=== PATIENT | female | born 1945 | race Caucasian/White ===

== ENCOUNTER 2017-08-01 07:30 | Inpatient (IN) | payer MEDICARE ==
[~2017-08-01] VITALS: Ht 160 cm; Wt 71.3 kg
[2017-08-07 17:46] VITALS: BP 92/50
[2017-08-07] MEDS ORDERED: DOCUSATE 100 MG CAPSULE PO PRN (19:00)
[2017-08-07] MEDS ORDERED: ONDANSETRON 2MG/ML, 2ML IVPush PRN (19:00)
[2017-08-07] MEDS ORDERED: HYDROcodone/APAP 5/325 TABLET PO PRN (19:00)
[2017-08-07] MEDS ORDERED: ACETAMINOPHEN 325 MG TABLET PO PRN ×2 (19:00→20:00)
[2017-08-07] MEDS ORDERED: HEPARIN 5,000 UNITS/ML, 1ML SQ SCH (19:00)
[2017-08-07] MEDS ORDERED: LABETALOL 5MG/ML, 20ML IVPush PRN (19:00)
[2017-08-07 19:20] LABS: HEMATOCRIT 38.2 % (34.6-47.8); HEMOGLOBIN 12.5 g/dL (11.7-16.4)
[2017-08-07 19:24] LABS: BLOOD UREA NITROGEN 30 mg/dL (7-18)
[2017-08-07 19:29] LABS: ASPARTATE AMINO TRANSFERASE 33 U/L (15-37)
[2017-08-07] MEDS ORDERED: PLEASE ENTER ALLERGIES MC SCH ×4 (19:30→20:00)
[2017-08-07] MEDS ORDERED: CHLORHEXIDINE MOUTHWASH 15 ML UDC MM PRN (20:00)
[2017-08-07] MEDS ORDERED: INSULIN ASPART 100 UNITS/ML, PEN SQ-INSULIN SCH (20:00)
[2017-08-07] MEDS ORDERED: ZOLPIDEM 5MG TABLET PO PRN (20:00)
[2017-08-07] MEDS ORDERED: AMIO200T42 PO (20:06)
[2017-08-07] MEDS ORDERED: LEVO50TA5 PO (20:06)
[2017-08-07] MEDS ORDERED: FURO40TA6 PO (20:06)
[2017-08-07] MEDS ORDERED: SPIR50TA2 PO (20:06)
[2017-08-07] MEDS ORDERED: POTA10TA11 PO (20:06)
[2017-08-07] MEDS ORDERED: TRAZ50TA18 PO (20:06)
[2017-08-07 20:15] VITALS: BP 93/53
[2017-08-07] MEDS: SODIUM CHLORIDE FLUSH 10ML SYR IVF SCH (21:00)
[2017-08-07] MEDS ORDERED: OMNIPAQUE 350 MG/ML, 75ML BOTTLE ONE (21:14)
[2017-08-08 03:55] VITALS: BP 98/53
[2017-08-08 04:27] VITALS: BP_SYST 84; BP_SYST 92; BP_DIAS 44; BP_DIAS 52
[2017-08-08] MEDS ORDERED: ALBUMIN HUMAN 5% 500 ML IV PRN (04:30)
[2017-08-08] MEDS: MUPIROCIN OINT 2%, 22GM TP SCH ×2 (05:03→18:20)
[2017-08-08] MEDS ORDERED: MIDAZOLAM 10MG/2 ML ONE (06:48)
[2017-08-08] MEDS ORDERED: FENTANYL PF 1000 MCG/20ML ONE (06:48)
[2017-08-08] MEDS ORDERED: TALC 30 GM AERO.PWD INTRAPL ONE (07:00)
[2017-08-08] MEDS ORDERED: MIDAZOLAM 1 MG/ML, 2ML ONE (07:22)
[2017-08-08] MEDS ORDERED: ROCURONIUM 10 MG/ML,10ML ONE ×2 (07:22→08:18)
[2017-08-08] MEDS ORDERED: FENTANYL PF 250 MCG/5ML ONE (07:22)
[2017-08-08] MEDS ORDERED: AMINOCAPROIC ACID 250 MG/ML, 20ML ONE (07:22)
[2017-08-08] MEDS ORDERED: PROPOFOL 10 MG/ML, 20ML ONE ×2 (07:22→08:19)
[2017-08-08] MEDS ORDERED: PHENYLEPHRINE 10 MG in SODIUM CHLORIDE 0.9% 249 ML IV PRN ×2 (07:30→12:59)
[2017-08-08] MEDS ORDERED: VANCOMYCIN 1,600 MG in SODIUM CHLORIDE 0.9% 250 ML IVPB PRN (07:30)
[2017-08-08] MEDS ORDERED: DEXMEDETOMIDINE 200 MCG in SODIUM CHLORIDE 0.9% 48 ML IV SCH (07:30)
[2017-08-08] MEDS ORDERED: REGULAR INSULIN 62.5 UNITS in SODIUM CHLORIDE 0.9% 249.375 ML IV PRN ×2 (07:30→12:59)
[2017-08-08] MEDS ORDERED: EPINEPHRINE 2 MG in SODIUM CHLORIDE 0.9% 248 ML IV SCH (07:30)
[2017-08-08] MEDS ORDERED: CEFUROXIME 1.5 GM in SODIUM CHLORIDE 0.9% 50 ML IVPB PRN (07:30)
[2017-08-08] MEDS ORDERED: MANNITOL PMX 20% 500 ML IVPB PRN (07:30)
[2017-08-08] MEDS ORDERED: POTASSIUM CHLORIDE 80 MEQ, SODIUM BICARBONATE 8.4% 10 MEQ, MAGNESIUM SULFATE 0.5 GM, LI... IV PRN (07:30)
[2017-08-08] MEDS: DOCUSATE 100 MG CAPSULE PO SCH ×2 (09:00→21:52)
[2017-08-08] MEDS: SODIUM CHLORIDE FLUSH 10ML SYR IVF SCH ×3 (09:00→21:50)
[2017-08-08] MEDS ORDERED: PROTAMINE SULFATE 10 MG/ML, 25ML ONE (11:08)
[2017-08-08] MEDS ORDERED: CALCIUM CHLORIDE 10%, 10ML SYR ONE (11:39)
[2017-08-08] MEDS ORDERED: VASOPRESSIN 20 UNIT/ML, 1ML ONE (12:39)
[2017-08-08] MEDS ORDERED: VASOPRESSIN 50 UNIT in SODIUM CHLORIDE 0.9% 250 ML IV PRN (12:59)
[2017-08-08] MEDS ORDERED: DOBUTAMINE 250 MG in SODIUM CHLORIDE 0.9% 230 ML IV PRN (12:59)
[2017-08-08] MEDS ORDERED: NITROGLYCERIN/D5W PMX 240 ML IV PRN (12:59)
[2017-08-08] MEDS ORDERED: OXYcodone IR 5MG TABLET PO PRN (13:00)
[2017-08-08] MEDS ORDERED: DEXTROSE 4 GM TAB.CHEW PO PRN (13:00)
[2017-08-08] MEDS ORDERED: BISACODYL 5 MG EC TABLET PO PRN (13:00)
[2017-08-08] MEDS ORDERED: DEXTROSE 50%, 50ML SYRINGE IVPush PRN (13:00)
[2017-08-08] MEDS ORDERED: ACETAMINOPHEN 650 MG SUPP PR PRN (13:00)
[2017-08-08] MEDS ORDERED: INSULIN REGULAR 100 UNITS/ML, 3ML VIAL IVPush PRN (13:00)
[2017-08-08] MEDS ORDERED: SODIUM BICARB 8.4%, 50ML SYRINGE IV PRN (13:00)
[2017-08-08] MEDS ORDERED: ONDANSETRON 2MG/ML, 2ML IVPush PRN (13:00)
[2017-08-08] MEDS ORDERED: GLUCAGON 1 MG IM PRN (13:00)
[2017-08-08] MEDS: KSCALE TO 4.5 IV SCH ×2 (13:00→19:00)
[2017-08-08] MEDS ORDERED: ACETAMINOPHEN 325 MG TABLET PO PRN (13:00)
[2017-08-08] MEDS ORDERED: PROCHLORPERAZINE 5 MG/ML, 2ML IVPush PRN (13:00)
[2017-08-08] MEDS ORDERED: BISACODYL 10 MG SUPP PR PRN (13:00)
[2017-08-08] MEDS ORDERED: LACTATED RINGERS 1,000 ML IV PRN (13:00)
[2017-08-08 13:40] LABS: ABG COLLECTION SITE ARTERIAL LINE
[2017-08-08] MEDS: CHLORHEXIDINE MOUTHWASH 15 ML UDC MM SCH (14:28)
[2017-08-08] MEDS ORDERED: POTASSIUM CHLORIDE PMX 100 ML IV ONE (14:30)
[2017-08-08] MEDS: INSULIN ASPART 100 UNITS/ML, PEN SQ-INSULIN SCH ×2 (16:00→21:00)
[2017-08-08] MEDS: MAGNESIUM SULFATE 1 GM in SODIUM CHLORIDE 0.9% 50 ML IVPB SCH (17:18)
[2017-08-08] MEDS: DEXMEDETOMIDINE 200 MCG in SODIUM CHLORIDE 0.9% 48 ML IV PRN ×2 (17:18→22:14)
[2017-08-08] MEDS: EPINEPHRINE 2 MG in SODIUM CHLORIDE 0.9% 248 ML IV PRN ×2 (17:21→23:48)
[2017-08-08] MEDS ORDERED: ALBUMIN HUMAN 5% 500 ML IV ONE (18:00)
[2017-08-08 18:11] VITALS: BP 87/58
[2017-08-08 18:30] VITALS: BP 90/58
[2017-08-08 18:50] LABS: HEMATOCRIT 37.1 % (34.6-47.8); HEMOGLOBIN 12.4 g/dL (11.7-16.4)
[2017-08-08 19:17] VITALS: BP 119/69
[2017-08-08 19:27] LABS: BLOOD UREA NITROGEN 24 mg/dL (7-18)
[2017-08-08] MEDS: MUPIROCIN OINT 2%, 22GM NAS SCH (21:36)
[2017-08-08] MEDS: VANCOMYCIN PMX 1GM/200ML 200 ML IVPB SCH (21:37)
[2017-08-08] MEDS: MIDAZOLAM 1 MG/ML, 5ML IVPush PRN (21:52)
[2017-08-08] MEDS: CEFUROXIME 1.5 GM in SODIUM CHLORIDE 0.9% 50 ML IVPB SCH (21:52)
[2017-08-09] MEDS: KSCALE TO 4.5 IV SCH ×2 (01:00→07:00)
[2017-08-09 01:43] LABS: HEMOGLOBIN 10.4 g/dL (11.7-16.4)
[2017-08-09] MEDS: DEXMEDETOMIDINE 200 MCG in SODIUM CHLORIDE 0.9% 48 ML IV PRN ×3 (02:32→22:43)
[2017-08-09] MEDS: CHLORHEXIDINE MOUTHWASH 15 ML UDC MM SCH ×2 (02:33→13:00)
[2017-08-09] MEDS ORDERED: FUROSEMIDE 20 MG/2 ML ONE (04:09)
[2017-08-09 04:28] LABS: ABG COLLECTION SITE ARTERIAL LINE
[2017-08-09 04:29] LABS: HEMATOCRIT 30.2 % (34.6-47.8); HEMOGLOBIN 9.9 g/dL (11.7-16.4); WHITE BLOOD COUNT 19.6 x10^3/uL (3.4-10)
[2017-08-09 04:41] LABS: BLOOD UREA NITROGEN 25 mg/dL (7-18)
[2017-08-09] MEDS: MIDAZOLAM 1 MG/ML, 5ML IVPush PRN (05:24)
[2017-08-09] MEDS ORDERED: FUROSEMIDE 20 MG/2 ML IV ONE (05:30)
[2017-08-09] MEDS ORDERED: PHENYLEPHRINE 20 MG in SODIUM CHLORIDE 0.9% 248 ML IV PRN (05:57)
[2017-08-09] MEDS: MUPIROCIN OINT 2%, 22GM TP SCH (06:00)
[2017-08-09] MEDS: INSULIN ASPART 100 UNITS/ML, PEN SQ-INSULIN SCH ×4 (07:00→21:00)
[2017-08-09] MEDS ORDERED: ALBUMIN HUMAN 5% 500 ML IV ONE (07:00)
[2017-08-09] MEDS: CEFUROXIME 1.5 GM in SODIUM CHLORIDE 0.9% 50 ML IVPB SCH (08:54)
[2017-08-09] MEDS: VANCOMYCIN PMX 1GM/200ML 200 ML IVPB SCH (08:54)
[2017-08-09] MEDS ORDERED: ASPIRIN 81 MG TABLET EC PO SCH (09:00)
[2017-08-09] MEDS: DOCUSATE 100 MG CAPSULE PO SCH ×2 (09:00→21:00)
[2017-08-09] MEDS ORDERED: ASPIRIN 81 MG TABLET CHEW ONE (10:19)
[2017-08-09] MEDS: EPINEPHRINE 2 MG in SODIUM CHLORIDE 0.9% 248 ML IV PRN (10:36)
[2017-08-09] MEDS: MAGNESIUM SULFATE 1 GM in SODIUM CHLORIDE 0.9% 50 ML IVPB SCH (12:37)
[2017-08-09] MEDS: ASPIRIN 81 MG TABLET CHEW PO SCH (12:37)
[2017-08-09] MEDS: SODIUM CHLORIDE FLUSH 10ML SYR IVF SCH ×2 (12:37→21:30)
[2017-08-09] MEDS: MUPIROCIN OINT 2%, 22GM NAS SCH ×2 (12:39→21:31)
[2017-08-09] MEDS: morphine SULFATE 10 MG/ML, 1ML IVPush PRN (14:24)
[2017-08-09] MEDS: EPINEPHRINE 4 MG in SODIUM CHLORIDE 0.9% 246 ML IV PRN (16:58)
[2017-08-09 19:11] LABS: HEMATOCRIT 25.9 % (34.6-47.8); HEMOGLOBIN 8.7 g/dL (11.7-16.4)
[2017-08-09] MEDS: DOCUSATE 50 MG/5 ML, 10ML UDC PO SCH (21:00)
[2017-08-10] MEDS: CHLORHEXIDINE MOUTHWASH 15 ML UDC MM SCH (01:04)
[2017-08-10] MEDS: EPINEPHRINE 4 MG in SODIUM CHLORIDE 0.9% 246 ML IV PRN ×2 (02:18→12:43)
[2017-08-10 04:00] VITALS: BP 114/61
[2017-08-10] MEDS: morphine SULFATE 10 MG/ML, 1ML IVPush PRN ×2 (04:46→10:03)
[2017-08-10] MEDS ORDERED: FILTER 0.22 MICRON IV PRN (06:00)
[2017-08-10] MEDS ORDERED: AMIODARONE 150 MG in DEXTROSE 5% 100 ML IV ONE (06:00)
[2017-08-10 06:03] LABS: ABG COLLECTION SITE NOT DOCUMENTED
[2017-08-10] MEDS: AMIODARONE 900 MG in DEXTROSE 5% 482 ML IV PRN (06:07)
[2017-08-10 06:12] LABS: BLOOD UREA NITROGEN 28 mg/dL (7-18)
[2017-08-10] MEDS: DEXMEDETOMIDINE 200 MCG in SODIUM CHLORIDE 0.9% 48 ML IV PRN ×3 (06:17→22:50)
[2017-08-10 06:28] LABS: HEMATOCRIT 25.7 % (34.6-47.8); HEMOGLOBIN 8.6 g/dL (11.7-16.4); WHITE BLOOD COUNT 13.8 x10^3/uL (3.4-10)
[2017-08-10] MEDS: INSULIN ASPART 100 UNITS/ML, PEN SQ-INSULIN SCH ×4 (07:00→22:49)
[2017-08-10] MEDS: DOCUSATE 50 MG/5 ML, 10ML UDC PO SCH ×2 (09:00→21:00)
[2017-08-10] MEDS: ENOXAPARIN 40 MG/0.4 ML SQ SCH (09:00)
[2017-08-10] MEDS: KSCALE TO 4.5 IV SCH ×3 (09:00→22:30)
[2017-08-10] MEDS ORDERED: POTASSIUM CHLORIDE PMX 100 ML IV ONE ×2 (09:30→19:00)
[2017-08-10] MEDS: ASPIRIN 81 MG TABLET CHEW PO SCH (13:17)
[2017-08-10] MEDS: MUPIROCIN OINT 2%, 22GM NAS SCH ×2 (13:17→20:26)
[2017-08-10] MEDS: HYDROcodone/APAP 10/325 MG TABLET PO PRN ×3 (13:17→23:58)
[2017-08-10] MEDS: SODIUM CHLORIDE FLUSH 10ML SYR IVF SCH ×2 (13:17→20:25)
[2017-08-10] MEDS ORDERED: FUROSEMIDE 20 MG/2 ML IV ONE ×2 (14:00)
[2017-08-10] MEDS: MAGNESIUM SULFATE 1 GM in SODIUM CHLORIDE 0.9% 50 ML IVPB SCH (14:06)
[2017-08-10] MEDS: PIPERACILLIN/TAZO/PMX 3.375GM 50 ML IV SCH ×2 (17:04→22:50)
[2017-08-11] MEDS: EPINEPHRINE 4 MG in SODIUM CHLORIDE 0.9% 246 ML IV PRN (03:34)
[2017-08-11 03:59] VITALS: BP 116/51
[2017-08-11] MEDS: PIPERACILLIN/TAZO/PMX 3.375GM 50 ML IV SCH ×4 (04:15→22:26)
[2017-08-11] MEDS: INSULIN ASPART 100 UNITS/ML, PEN SQ-INSULIN SCH ×3 (04:21→18:31)
[2017-08-11] MEDS: KSCALE TO 4.5 IV SCH ×3 (04:30→16:25)
[2017-08-11 04:31] LABS: ABG COLLECTION SITE ARTERIAL LINE
[2017-08-11 04:42] LABS: HEMATOCRIT 25.1 % (34.6-47.8); HEMOGLOBIN 8.4 g/dL (11.7-16.4); WHITE BLOOD COUNT 12.6 x10^3/uL (3.4-10)
[2017-08-11 04:43] LABS: BLOOD UREA NITROGEN 31 mg/dL (7-18)
[2017-08-11] MEDS ORDERED: POTASSIUM CHLORIDE PMX 100 ML IV ONE (05:30)
[2017-08-11] MEDS: AMIODARONE 900 MG in DEXTROSE 5% 482 ML IV PRN (05:40)
[2017-08-11] MEDS: DEXMEDETOMIDINE 200 MCG in SODIUM CHLORIDE 0.9% 48 ML IV PRN ×4 (06:19→22:25)
[2017-08-11] MEDS: SODIUM CHLORIDE FLUSH 10ML SYR IVF SCH ×2 (09:00→20:43)
[2017-08-11] MEDS: ENOXAPARIN 40 MG/0.4 ML SQ SCH (09:00)
[2017-08-11] MEDS: MUPIROCIN OINT 2%, 22GM NAS SCH ×2 (09:00→20:43)
[2017-08-11] MEDS: ASPIRIN 81 MG TABLET CHEW PO SCH (09:09)
[2017-08-11] MEDS: CLOPIDOGREL 75 MG TABLET PO SCH (09:10)
[2017-08-11] MEDS: DOCUSATE 50 MG/5 ML, 10ML UDC PO SCH ×2 (09:10→20:43)
[2017-08-11] MEDS: HYDROcodone/APAP 5/325 TABLET PO PRN ×2 (10:02→18:27)
[2017-08-11] MEDS ORDERED: FUROSEMIDE 20 MG/2 ML ONE (16:13)
[2017-08-11] MEDS ORDERED: ALBUMIN HUMAN 25% 50 ML IV ONE (16:30)
[2017-08-11] MEDS ORDERED: FUROSEMIDE 20 MG/2 ML IV ONE (16:30)
[2017-08-12] MEDS: EPINEPHRINE 4 MG in SODIUM CHLORIDE 0.9% 246 ML IV PRN ×2 (00:19→19:43)
[2017-08-12] MEDS: DEXMEDETOMIDINE 200 MCG in SODIUM CHLORIDE 0.9% 48 ML IV PRN (03:21)
[2017-08-12 04:00] VITALS: BP 111/58
[2017-08-12] MEDS: PIPERACILLIN/TAZO/PMX 3.375GM 50 ML IV SCH ×4 (04:12→22:28)
[2017-08-12 04:27] LABS: ABG COLLECTION SITE ARTERIAL LINE
[2017-08-12 04:32] LABS: BLOOD UREA NITROGEN 34 mg/dL (7-18)
[2017-08-12 04:40] LABS: HEMATOCRIT 26.1 % (34.6-47.8); HEMOGLOBIN 8.7 g/dL (11.7-16.4); WHITE BLOOD COUNT 7.8 x10^3/uL (3.4-10)
[2017-08-12] MEDS: INSULIN ASPART 100 UNITS/ML, PEN SQ-INSULIN SCH ×4 (05:02→17:06)
[2017-08-12 05:45] LABS: DIFF TOTAL CELLS COUNTED 100 CELL DIFF
[2017-08-12 05:47] LABS: ANISOCYTOSIS 1+; POLYCHROMASIA 1+; VERIFY COUNTS? YES
[2017-08-12] MEDS: MUPIROCIN OINT 2%, 22GM NAS SCH ×2 (09:00→20:33)
[2017-08-12] MEDS: ENOXAPARIN 40 MG/0.4 ML SQ SCH (09:00)
[2017-08-12] MEDS: AMIODARONE 900 MG in DEXTROSE 5% 482 ML IV PRN (09:45)
[2017-08-12] MEDS: DEXMEDETOMIDINE 400 MCG in SODIUM CHLORIDE 0.9% 96 ML IV PRN ×2 (09:46→19:06)
[2017-08-12] MEDS: CLOPIDOGREL 75 MG TABLET PO SCH (10:02)
[2017-08-12] MEDS: SODIUM CHLORIDE FLUSH 10ML SYR IVF SCH ×2 (10:02→20:34)
[2017-08-12] MEDS: DOCUSATE 50 MG/5 ML, 10ML UDC PO SCH ×2 (10:02→20:33)
[2017-08-12] MEDS: ASPIRIN 81 MG TABLET CHEW PO SCH (10:02)
[2017-08-12] MEDS: ALBUMIN HUMAN 25% 50 ML IV SCH ×2 (12:33→22:27)
[2017-08-12] MEDS: FUROSEMIDE 20 MG/2 ML IV SCH (13:54)
[2017-08-12] MEDS: KSCALE TO 4.5 IV SCH ×2 (20:30→23:30)
[2017-08-12] MEDS ORDERED: POTASSIUM CHLORIDE 30 MEQ in SODIUM CHLORIDE 0.9% 100 ML IV ONE (20:30)
[2017-08-12] MEDS: HYDROcodone/APAP 10/325 MG TABLET PO PRN (20:33)
[2017-08-13] MEDS: FUROSEMIDE 20 MG/2 ML IV SCH ×3 (00:11→23:55)
[2017-08-13] MEDS: INSULIN ASPART 100 UNITS/ML, PEN SQ-INSULIN SCH ×4 (00:11→16:11)
[2017-08-13] MEDS ORDERED: POTASSIUM CHLORIDE PMX 100 ML IV ONE ×2 (01:00→22:30)
[2017-08-13] MEDS: morphine SULFATE 10 MG/ML, 1ML IVPush PRN (01:54)
[2017-08-13] MEDS: DEXMEDETOMIDINE 400 MCG in SODIUM CHLORIDE 0.9% 96 ML IV PRN ×2 (03:21→20:49)
[2017-08-13 04:00] VITALS: BP 114/52
[2017-08-13] MEDS: PIPERACILLIN/TAZO/PMX 3.375GM 50 ML IV SCH ×4 (04:05→22:50)
[2017-08-13 04:53] LABS: ABG COLLECTION SITE ARTERIAL LINE
[2017-08-13 05:03] LABS: BLOOD UREA NITROGEN 32 mg/dL (7-18)
[2017-08-13 05:54] LABS: HEMATOCRIT 25.4 % (34.6-47.8); HEMOGLOBIN 8.6 g/dL (11.7-16.4); WHITE BLOOD COUNT 4.8 x10^3/uL (3.4-10)
[2017-08-13 05:55] LABS: DIFF TOTAL CELLS COUNTED 100 CELL DIFF
[2017-08-13 05:58] LABS: ANISOCYTOSIS 1+; POLYCHROMASIA 1+; VERIFY COUNTS? YES
[2017-08-13 05:59] LABS: OVALOCYTES 1+
[2017-08-13 06:00] LABS: LARGE PLATELETS 1+
[2017-08-13] MEDS: ENOXAPARIN 40 MG/0.4 ML SQ SCH (09:00)
[2017-08-13] MEDS: KSCALE TO 4.5 IV SCH ×3 (09:00→21:00)
[2017-08-13] MEDS: MUPIROCIN OINT 2%, 22GM NAS SCH (09:09)
[2017-08-13] MEDS: ASPIRIN 81 MG TABLET CHEW PO SCH (09:15)
[2017-08-13] MEDS: DOCUSATE 50 MG/5 ML, 10ML UDC PO SCH ×2 (09:15→20:21)
[2017-08-13] MEDS: CLOPIDOGREL 75 MG TABLET PO SCH (09:15)
[2017-08-13] MEDS: SODIUM CHLORIDE FLUSH 10ML SYR IVF SCH ×2 (09:29→20:21)
[2017-08-13] MEDS: ALBUMIN HUMAN 25% 50 ML IV SCH ×2 (11:08→22:07)
[2017-08-13] MEDS: FENTANYL PF 100 MCG/2ML IVPush PRN (11:13)
[2017-08-13] MEDS: HYDROcodone/APAP 10/325 MG TABLET PO PRN (13:55)
[2017-08-13] MEDS: HYDROmorphone 2 MG/ML, 1ML IVPush PRN ×2 (13:55→22:08)
[2017-08-13] MEDS: EPINEPHRINE 4 MG in SODIUM CHLORIDE 0.9% 246 ML IV PRN (14:40)
[2017-08-13] MEDS: AMIODARONE 900 MG in DEXTROSE 5% 482 ML IV PRN (17:59)
[2017-08-14] MEDS: HYDROmorphone 2 MG/ML, 1ML IVPush PRN (00:36)
[2017-08-14 04:45] LABS: ABG COLLECTION SITE RIGHT RADIAL; COLLATERAL CIRCULATION TESTING NORMAL
[2017-08-14 04:46] LABS: BLOOD UREA NITROGEN 43 mg/dL (7-18)
[2017-08-14 05:00] LABS: HEMATOCRIT 23.4 % (34.6-47.8); HEMOGLOBIN 8.1 g/dL (11.7-16.4); WHITE BLOOD COUNT 3.7 x10^3/uL (3.4-10)
[2017-08-14 05:01] LABS: DIFF TOTAL CELLS COUNTED 100 CELL DIFF
[2017-08-14 05:04] LABS: VERIFY COUNTS? YES
[2017-08-14 05:05] LABS: ANISOCYTOSIS 1+; OVALOCYTES 1+; POLYCHROMASIA 1+
[2017-08-14] MEDS: PIPERACILLIN/TAZO/PMX 3.375GM 50 ML IV SCH ×4 (05:15→22:36)
[2017-08-14] MEDS: DEXMEDETOMIDINE 400 MCG in SODIUM CHLORIDE 0.9% 96 ML IV PRN (05:26)
[2017-08-14] MEDS: INSULIN ASPART 100 UNITS/ML, PEN SQ-INSULIN SCH ×5 (06:00→23:47)
[2017-08-14] MEDS: ENOXAPARIN 40 MG/0.4 ML SQ SCH (08:06)
[2017-08-14] MEDS: ASPIRIN 81 MG TABLET CHEW PO SCH (08:09)
[2017-08-14] MEDS: SODIUM CHLORIDE FLUSH 10ML SYR IVF SCH ×2 (08:09→19:50)
[2017-08-14] MEDS: CLOPIDOGREL 75 MG TABLET PO SCH (08:09)
[2017-08-14] MEDS: DOCUSATE 50 MG/5 ML, 10ML UDC PO SCH ×2 (08:09→19:50)
[2017-08-14] MEDS: FENTANYL PF 100 MCG/2ML IVPush PRN (08:31)
[2017-08-14] MEDS: PROPOFOL 100 ML IV PRN ×2 (10:44→19:50)
[2017-08-14] MEDS: ALBUMIN HUMAN 25% 50 ML IV SCH ×2 (10:55→23:16)
[2017-08-14] MEDS: FUROSEMIDE 20 MG/2 ML IV SCH ×2 (14:37→23:47)
[2017-08-14] MEDS: EPINEPHRINE 4 MG in SODIUM CHLORIDE 0.9% 246 ML IV PRN (16:41)
[2017-08-15] VITALS (7 sets, daily range): BP systolic 110–146; BP diastolic 54–62
[2017-08-15] MEDS: PIPERACILLIN/TAZO/PMX 3.375GM 50 ML IV SCH ×2 (04:44→11:02)
[2017-08-15 04:57] LABS: BLOOD UREA NITROGEN 43 mg/dL (7-18); WHITE BLOOD COUNT 6.7 x10^3/uL (3.4-10)
[2017-08-15] MEDS: INSULIN ASPART 100 UNITS/ML, PEN SQ-INSULIN SCH ×4 (05:02→23:07)
[2017-08-15 05:03] LABS: ABG COLLECTION SITE ARTERIAL LINE
[2017-08-15 05:18] LABS: HEMOGLOBIN 6.9 g/dL (11.7-16.4)
[2017-08-15] MEDS: PROPOFOL 100 ML IV PRN ×2 (07:28→14:23)
[2017-08-15] MEDS: ENOXAPARIN 40 MG/0.4 ML SQ SCH (08:55)
[2017-08-15] MEDS: DOCUSATE 50 MG/5 ML, 10ML UDC PO SCH ×2 (08:55→20:32)
[2017-08-15] MEDS: ASPIRIN 81 MG TABLET CHEW PO SCH (08:55)
[2017-08-15] MEDS: CLOPIDOGREL 75 MG TABLET PO SCH (08:55)
[2017-08-15] MEDS: SODIUM CHLORIDE FLUSH 10ML SYR IVF SCH ×2 (09:04→20:32)
[2017-08-15] MEDS: ALBUMIN HUMAN 25% 50 ML IV SCH (14:17)
[2017-08-15 15:03] LABS: HEMOGLOBIN 7.9 g/dL (11.7-16.4)
[2017-08-15 15:07] LABS: HEMATOCRIT 22.6 % (34.6-47.8)
[2017-08-15] MEDS: FUROSEMIDE 20 MG/2 ML IV SCH (15:59)
[2017-08-15] MEDS: PIPERACILLIN/TAZO 3.375 GM in SODIUM CHLORIDE 0.9% 50 ML IV SCH ×2 (18:19→23:07)
[2017-08-16] MEDS: PROPOFOL 100 ML IV PRN (00:38)
[2017-08-16] MEDS: ALBUMIN HUMAN 25% 50 ML IV SCH (02:09)
[2017-08-16] MEDS: FUROSEMIDE 20 MG/2 ML IV SCH (03:12)
[2017-08-16 04:55] LABS: ABG COLLECTION SITE RIGHT RADIAL; COLLATERAL CIRCULATION TESTING NORMAL
[2017-08-16] MEDS: PIPERACILLIN/TAZO 3.375 GM in SODIUM CHLORIDE 0.9% 50 ML IV SCH (05:05)
[2017-08-16 05:52] LABS: HEMATOCRIT 25.1 % (34.6-47.8); HEMOGLOBIN 8.3 g/dL (11.7-16.4); WHITE BLOOD COUNT 8.3 x10^3/uL (3.4-10)
[2017-08-16] MEDS: INSULIN ASPART 100 UNITS/ML, PEN SQ-INSULIN SCH (06:00)
[2017-08-16 06:03] LABS: BLOOD UREA NITROGEN 43 mg/dL (7-18)
[2017-08-16] MEDS ORDERED: EPINEPHRINE SYRINGE 0.1 MG/ML, 10ML ONE (09:00)
[2017-08-16] MEDS ORDERED: LORazepam 2 MG/ML, 1ML IVPush PRN ×2 (10:00)
[2017-08-16] MEDS ORDERED: morphine SULFATE 10 MG/ML, 1ML IVPush PRN (10:00)
[2017-08-16] MEDS ORDERED: morphine SULFATE 125 MG in SODIUM CHLORIDE 0.9% 237.5 ML IV PRN (10:00)
[2017-08-16] MEDS ORDERED: ATROPINE OPHTH SOLN 1%, 2ML PO PRN (10:00)
== END 2017-08-16 11:29 | disposition expired | DRG 219 ==
LOC: 5SO 08-07 16:32 → CSU 08-08 09:06 → CCU 08-12 06:30
PROVIDERS: ADMIT Family Medicine; ATTEND Family Medicine
PROC: 02RF0JZ Replacement of Aortic Valve with Synthetic Substitute, Open Approach (ICD-10-PCS; 2017-08-08)
PROC: 02UX0JZ Supplement Thoracic Aorta, Ascending/Arch with Synthetic Substitute, Open Approach (ICD-10-PCS; 2017-08-08)
PROC: 6A550Z2 Pheresis of Platelets, Single (ICD-10-PCS; 2017-08-08)
PROC: 0T9B70Z Drainage of Bladder with Drainage Device, Via Natural or Artificial Opening (ICD-10-PCS; 2017-08-08)
PROC: 051 Upper Veins, Bypass (ICD-10-PCS; 2017-08-08)
PROC: 5A1221Z Performance of Cardiac Output, Continuous (ICD-10-PCS; 2017-08-08)
PROC: 5A1945Z Respiratory Ventilation, 24-96 Consecutive Hours (ICD-10-PCS; principal; 2017-08-10)
PROC: 0BH17EZ Insertion of Endotracheal Airway into Trachea, Via Natural or Artificial Opening (ICD-10-PCS; 2017-08-10)
PROC: 30233N1 Transfusion of Nonautologous Red Blood Cells into Peripheral Vein, Percutaneous Approach (ICD-10-PCS; 2017-08-15)
DX: I08.2 Rheumatic disorders of both aortic and tricuspid valves (principal); J96.00 Acute respiratory failure, unspecified whether with hypoxia or hypercapnia; I50.33 Acute on chronic diastolic (congestive) heart failure; J18.9 Pneumonia, unspecified organism; D68.59 Other primary thrombophilia; I27.20 Pulmonary hypertension, unspecified; I48.0 Paroxysmal atrial fibrillation; I11.0 Hypertensive heart disease with heart failure; I48.1 Persistent atrial fibrillation; J93.82 Other air leak; J93.9 Pneumothorax, unspecified; M48.50XA Collapsed vertebra, not elsewhere classified, site unspecified, initial encounter for fracture; T79.7XXA Traumatic subcutaneous emphysema, initial encounter; Z51.5 Encounter for palliative care; E03.9 Hypothyroidism, unspecified; D64.9 Anemia, unspecified; Z85.3 Personal history of malignant neoplasm of breast; Z86.79 Personal history of other diseases of the circulatory system; Z87.891 Personal history of nicotine dependence; Z90.13 Acquired absence of bilateral breasts and nipples; Z95.2 Presence of prosthetic heart valve; Z66 Do not resuscitate
CPT/HCPCS: 36415; 36600; 71010; 71250; 71260; 74150; 80048; 80053; 81001; 82040; 82330; 82800; 82803; 82810; 82947; 82962; 83036; 83735; 84100; 84132; 84295; 84478; 85014; 85018; 85025; 85049; 85347; 85610; 85730; 86850; 86900; 86923; 87040; 87070; 87077; 87081; 87086; 87186; 87205; 88304; 88305; 93005; 93312; 93321; 93325; 94002; 94003; 94150; C1768; J0697; J1170; J1644; J1815; J2250; J2543; J2704; J2720; J3010; J3370; J3475; J3480; J3490; P9045; P9047; Q9967; C1751; C1760; J0171; J0282; J1940; J2060; J2270; J2370; J2930; J7050; J7060; P9012; P9016; P9017; P9035